=== PATIENT | male | born 1990 ===

== ENCOUNTER → 2016-11-10 | Outpatient (REF) | payer BC ==
[2016-11-10 13:08] LABS: BASO % 0.3 % (0.0-1.0); EOS # 0.2 K/mm3 (0.0-0.50); EOS % 2.9 % (0.0-3.0); LARGE UNSTAINED CELL # 0.2 K/mm3 (0.0-0.4); LARGE UNSTAINED CELL % 2.6 % (0.0-4.0); LYMPH # 2.1 K/mm3 (1.5-6.5); LYMPH % 31.6 % (24.0-44.0); MEAN CORPUSCULAR HEMOGLOBIN 31.1 pg (27.0-33.0); MEAN CORPUSCULAR HGB CONC 33.9 g/dl (32.0-36.5); MEAN CORPUSCULAR VOLUME 91.7 fl (80.0-96.0); MONO # 0.3 K/mm3 (0.0-0.8); MONO % 4.6 % (0.0-5.0); NEUTROPHILS # 3.8 K/mm3 (1.8-7.7); PLATELET COUNT, AUTOMATED 331 k/mm3 (150-450); RED CELL DISTRIBUTION WIDTH 12.1 % (11.5-14.5); WHITE BLOOD COUNT 6.5 K/mm3 (4.0-10.0)
[2016-11-10 13:37] LABS: ALBUMIN 4.3 GM/DL (3.2-5.2); ALBUMIN/GLOBULIN RATIO 1.48 (1.00-1.93); ALKALINE PHOSPHATASE 89 U/L (45-117); ALT/SGPT 42 U/L (12-78); ANION GAP 5 MEQ/L (8-16); AST/SGOT 22 U/L (15-37); BILIRUBIN,TOTAL 0.4 MG/DL (0.2-1.0); BLOOD UREA NITROGEN 15 MG/DL (7-18); CALCIUM LEVEL 9.1 MG/DL (8.5-10.1); CARBON DIOXIDE LEVEL 26 MEQ/L (21-32); CHLORIDE LEVEL 109 MEQ/L (98-107); CREATININE FOR GFR 0.86 MG/DL (0.70-1.30); FREE T4 1.29 NG/DL (0.76-1.46); GLOMERULAR FILTRATION RATE > 60.0 (>60); GLUCOSE, FASTING 96 MG/DL (70-105); POTASSIUM SERUM 4.5 MEQ/L (3.5-5.1); SODIUM LEVEL 140 MEQ/L (136-145); TOTAL PROTEIN 7.2 GM/DL (6.4-8.2)
[2016-11-10 13:49] LABS: ERYTHROCYTE SEDIMENTATION RATE 3 mm/hr (0-15)
== END ==
LOC: M SFHCADAM 09:39
PROVIDERS: ATTEND Family Medicine
DX: Z11.4 Encounter for screening for human immunodeficiency virus [HIV] (principal); M25.50 Pain in unspecified joint; R63.4 Abnormal weight loss